=== PATIENT | female | born 1960 | race Caucasian/White ===

== ENCOUNTER 2019-12-09 15:41 | Outpatient (CLI) | payer OTHER ==
--- NOTE | 2019-12-09 16:25 | RAD ---
TWO VIEWS CHEST: 12/09/19 COMPARISON: 11/17/19. HISTORY: Alcoholic cirrhosis with esophageal varices and chronic cough. FINDINGS: Two views of the chest shows normal sized cardiomediastinal silhouette. Increased interstitial markin gs are present which are more prominent in the lung bases. Biapical pleural thickening is seen. There is no evidence of consolidation, mass, or pleural effusion. There are calcified bilateral breast imp lants. IMPRESSION: Chronic interstitial lung disease without acute cardiopulmonary process. POS: [facility]
== END 2019-12-09 15:42 | disposition home or self-care (01) ==
LOC: RAD 15:41
PROVIDERS: ATTEND Internal Medicine Gastroenterology
DX: Z12.11 Encounter for screening for malignant neoplasm of colon (principal); K70.30 Alcoholic cirrhosis of liver without ascites; R05 Cough; I85.00 Esophageal varices without bleeding; J84.9 Interstitial pulmonary disease, unspecified
CPT/HCPCS: 71046